=== PATIENT | female | born 1975 | race American Indian/Alaskan Native ===

== ENCOUNTER 2024-07-15 20:14 | Emergency (ER) | payer BC ==
[~2024-07-15] VITALS: Ht 160 cm; Wt 97.3 kg
[2024-07-15 20:48] LABS: BILIRUBIN,URINE NEGATIVE (Neg); CLARITY,URINE CLEAR (Clear); COLOR,URINE YELLOW (Yellow); GLUCOSE, URINE NEGATIVE (Neg); KETONES,URINE 15 mg/dl (Neg); LEUKOCYTE ESTERASE ,URINE NEGATIVE (Neg); NITRITES, URINE NEGATIVE (Neg); OCCULT BLOOD,URINE NEGATIVE (Neg); PH,URINE 7.5 (4.8-8.0); PROTEIN,URINE NEGATIVE (Neg)
[2024-07-15 20:49] LABS: URINE HCG NEGATIVE (NEG)
[2024-07-15 20:52] LABS: UA COLLECTION TYPE CLN CATCH MIDSTREAM
[2024-07-15] MEDS: ondansetron/PF 4mg/2ml inj IV ONE (21:04)
[2024-07-15] MEDS: normal saline 1000ml 1,000 ML IV ONE (21:05)
[2024-07-15 21:16] LABS: ALANINE AMINOTRANSFERASE 33 U/L (12-78); ALBUMIN 3.6 G/DL (3.4-5.0); ALBUMIN/GLOBULIN RATIO 0.8 (1.1-1.5); ALKALINE PHOSPHATASE 134 IU/L (46-116); ANION GAP 9 (8-16); ASPARTATE AMINO TRANSFERASE 22 U/L (10-37); BASOPHILS % (AUTO) 0.5 % (0-1); BILIRUBIN,TOTAL 1.5 MG/DL (0.1-1.0); BLOOD UREA NITROGEN 14 MG/DL (7-18); BUN/CREATININE RATIO 15.4 (10.0-20.0); CALCIUM 8.6 MG/DL (8.5-10.1); CHLORIDE 101 MMOL/L (99-107); CREATININE 0.91 MG/DL (0.40-0.90); EOSINOPHILS # (AUTO) 0.1 X10'3 (0-0.9); GLUCOSE 88 MG/DL (70-104); HEMATOCRIT 42.2 % (35.0-45.0); HEMOGLOBIN 14.2 g/dl (12.0-16.0); LIPASE 18 U/L (16-77); LYMPHOCYTES # (AUTO) 1.3 X10'3 (1.1-4.8); LYMPHOCYTES % (AUTO) 16.4 % (21-51); MEAN CORPUSCULAR HEMOGLOBIN 29.7 PG (27.0-31.0); MEAN CORPUSCULAR HGB CONC 33.8 g/dL (33.0-36.5); MEAN CORPUSCULAR VOLUME 87.9 FL (78-98); MEAN PLATELET VOLUME 7.8 FL (7.4-10.4); MONOCYTES # (AUTO) 0.5 X10'3 (0-0.9); MONOCYTES % (AUTO) 6.3 % (2-12); NEUTROPHILS % (AUTO) 75.8 % (42-75); PLATELET COUNT 243 X10'3 (140-440); POTASSIUM 3.5 MMOL/L (3.5-5.1); RED CELL DISTRIBUTION WIDTH 13.6 % (11.5-14.5); SODIUM 136 MMOL/L (135-145); WHITE BLOOD COUNT 7.9 X10'3 (4.5-11.0); eCRCL 63 ML/MIN; eGFR 66 ML/MIN
[2024-07-15] MEDS: ketorolac trometh 15mg/ml vial 15 MG/ML ML IV ONE (21:43)
[2024-07-15] MEDS: normal saline 1000ML IV soln IVB ONE (21:44)
[2024-07-15] MEDS ORDERED: ONDA-243 PO (23:52)
[2024-07-16 00:11] VITALS: BP 125/83; PULSE 89; RESP 19; TEMP 98.6; O2SAT 98
== END 2024-07-16 00:21 | disposition home or self-care (01) ==
LOC: ER 20:15
DX: R11.2 Nausea with vomiting, unspecified (principal); R10.84 Generalized abdominal pain; R51.9 Headache, unspecified; Z88.5 Allergy status to narcotic agent
CPT/HCPCS: 36415; 80053; 81003; 81025; 83690; 85025; 87502; 87503; 96361; 96374; 96375; 99284; J1885; J2405; J7030